=== PATIENT | male | born 2000 | race African-American/Black ===

== ENCOUNTER 2025-03-03 13:28 | Emergency (ER) | payer OTHER ==
[~2025-03-03] VITALS: Ht 180.3 cm; Wt 72.7 kg
[2025-03-03 13:38] VITALS: BP 119/74; PULSE 57; RESP 18; TEMP 98.2; O2SAT 98
[2025-03-03] MEDS: LIDOCAINE 1% 10 ML VIAL ID ONE (15:11)
[2025-03-03] MEDS: PERTUSS(ACELL),DIPH,TET/PF 0.5 ML SYRINGE [ADULT] IM. ONE (15:11)
[2025-03-03] MEDS: LIDOCAINE 1%/EPI 1:200,000/PF 10 ML VIAL ID ONE (15:29)
== END 2025-03-03 17:40 | disposition home or self-care (01) ==
LOC: EMS 13:39
DX: S61.411A Laceration without foreign body of right hand, initial encounter (principal); W22.8XXA Striking against or struck by other objects, initial encounter; Y93.89 Activity, other specified; Y92.89 Other specified places as the place of occurrence of the external cause; Y99.8 Other external cause status
CPT/HCPCS: 99283; 73130; 90715; 90471; 12001; J3490